=== PATIENT | female | born 1985 | race African-American/Black ===

== ENCOUNTER 2022-05-28 19:30 | Emergency (ER) | payer SELFPAY ==
--- NOTE | 2022-05-28 19:37 | ED.ABDPAIN ---
HPI - Abdominal Pain General Chief Complaint: Abdominal Pain Stated Complaint: Abdominal pain Time Seen by Provider: 05/28/22 20:14 Source: patient and RN notes reviewed Mode of arrival: ambulatory Limitations: no limitations History of Present Illness HPI narrative: 36-year-old female who is approximately 8 weeks with history of diabetes type 2 presents with concern for suprapubic pressure, pain. She reports several day history of chaudhary-colored foul-smelling vaginal discharge, vaginal irritation, itching, discomfort. She reports a new partner, they have not been tested. She reports some dysuria. She reports pain with sex. She denies fever, body aches, chills, sweats, nausea, vomiting, general abdominal pain. MD elicited complaint: other (suprapubic pressure) Related Data Allergies Allergy/AdvReac Type Severity Reaction Status Date / Time No Known Allergies Allergy Verified 05/28/22 20:26 Review of Systems Review of Systems: CONSTITUTIONAL: Denies malaise, chills, sweats, or fever. ENT: Denies rhinorrhea, congestion, sinus pain, otalgia or sore throat. CARDIOVASCULAR: Denies chest pain, palpitations, or edema. RESPIRATORY: Denies cough or dyspnea. GASTROINTESTINAL: Denies abdominal pain, nausea, vomiting, diarrhea, bloody, or mucous stools. GENITOURINARY: Reports suprapubic pressure and discomfort, dysuria, abnormal vaginal discharge, pain with sex MUSCULOSKELETAL: Denies myalgia. NEUROLOGIC: Denies headache. All systems reviewed & are unremarkable except as noted in HPI and below PMFSH Comments At time of signature, agree with nursing past medical, surgical, social and family history. There is no relevant family history pertinent to the presenting complaint Exam Narrative: GENERAL: Well-appearing, well-nourished, and in no acute distress. HEAD: Normocephalic, atraumatic. EYES: PERRLA, conjunctivae clear, and EOMI. ENT: Nares clear, turbinates pink, no rhinorrhea or epistaxis. Mucous membranes moist. Oropharynx without edema, erythema, or lesions. Tonsils not enlarged and without exudate. NECK: Supple. No lymphadenopathy CHEST: Speaks in full sentences. No respiratory distress. HEART: Regular rate and rhythm. ABDOMEN: Obese, soft, no guarding, rebound tenderness, or rigid. No pulsatilla masses. Supra pubic tenderness noted. SKIN: Warm, dry, no rash. NEURO: Alert and oriented x3. PSYCH: Normal mood and affect : External Female Exam: normal external appearance Speculum Exam - Vagina: abnormal vaginal discharge white and frothy and erythematous (, Excoriation) Speculum Exam - Cervix: Cervical tenderness present Bimanual exam- vagina & uterus: normal palpation and cervical motion tenderness Course Course Emergency Course: Patient is aware of diagnosis, understands and agrees to treatment plan. Anticipatory guidance given. Patient agrees to follow-up as directed and is aware of reasons to seek care at the emergency department. Portions of this record may have been created with voice recognition software Level of Care: Express Care Visit Vital Signs Vital signs: Reviewed. MDM - Abdominal Pain MDM Narrative Medical decision making narrative: Exam findings show no acute concerns or changes; patient is non-toxic appearing and is in no distress. Patient is appropriate for outpatient treatment and follow-up. Critical Care Time Critical Care Time Critical Care Time: No Discharge Plan Discharge Clinical Impression: Pelvic inflammatory disease (PID) Patient Disposition: Home, Self-Care Condition: Stable Instructions: Antibiotic Form, Pelvic Inflammatory Disease (ED) Additional Instructions: You have been tested for potential gonorrhea, chlamydia, and trichomoniasis today. You have received antibiotics to treat gonorrhea today, a prescription has been called into your pharmacy to treat chlamydia and trichomoniasis. You will receive a phone call in 2-3 days with the results of today's testing
[2022-05-28 19:45] VITALS: BP 137/72; PULSE 93; RESP 18; TEMP 37.1; O2SAT 100
[2022-05-28] MEDS: cefTRIAXone 500 MG, LIDOCAINE HCL 1% LOCAL INJ 1 ML IM (20:27)
== END 2022-05-28 20:53 | disposition home or self-care (01) ==
PROVIDERS: Emergency Provider Nurse Practitioner
DX: N73.9 Female pelvic inflammatory disease, unspecified (principal); O99.891 Other specified diseases and conditions complicating pregnancy; Z3A.08 8 weeks gestation of pregnancy; O24.911 Unspecified diabetes mellitus in pregnancy, first trimester
CPT/HCPCS: 81003; 87491; 87591; 87661; 96372; 99214; G0463; J0696